=== PATIENT | female | born 1995 | race Caucasian/White ===

== ENCOUNTER 2020-03-04 14:31 | Emergency (ER) | payer OTHER, SELFPAY ==
--- NOTE | ~2020-03-04 | XR_ITS ---
EXAMINATION: XR chest 1V portable DATE: 03/04/2020 15:58 INDICATION: Chest pain, cough, fever and 3 days of sore throat TECHNIQUE: frontal view of the chest was obtained. COMPARISON: None FINDINGS: The lungs are clear with no focal airspace opacities, pulmonary edema, pleural effusion or pneumothor ax. The cardiomediastinal silhouette is normal. Visualized bones and soft tissues are unremarkable. IMPRESSION: 1. No acute cardiopulmonary disease. Reviewed, dictated and finalized at location A.
[2020-03-04 14:44] VITALS: BP 134/78; PULSE 78; RESP 18; TEMP 37.1; O2SAT 100
[2020-03-04 15:30] VITALS: RESP 16
--- NOTE | 2020-03-04 16:01 | ED.GENADULT ---
HPI - General Adult General Chief complaint: Unspecified <Cole Quezada PA-C - Last Filed: 03/04/20 16:17> Stated complaint: COVID Symptoms Sent by PCP <Cole Quezada PA-C - Last Filed: 03/04/20 16:17> Time Seen by Provider: 03/04/20 15:22 <Cole Quezada PA-C - Last Filed: 03/04/20 16:17> Source: patient <Cole Quezada PA-C - Last Filed: 03/04/20 16:17> Mode of arrival: ambulatory <Cole Quezada PA-C - Last Filed: 03/04/20 16:17> Limitations: no limitations <Cole Quezada PA-C - Last Filed: 03/04/20 16:17> History of Present Illness HPI narrative: Patient is a 24-year-old female who presents to emergency department for evaluation of upper respiratory symptoms for the last several days noting congestion headache cough sore throat. Patient was referred to emergency department for evaluation and COVID testing patient denies vomiting diarrhea has not taken anything for her symptoms and on arrival is resting comfortably in the room in no distress. Patient works for [employer] denies any sick known contacts <Cole Quezada PA-C - Last Filed: 03/04/20 16:17> Related Data Allergies/adverse reactions: Allergies Allergy/AdvReac Type Severity Reaction Status Date / Time No Known Allergies Allergy Unknown Unverified 03/04/20 15:32 <Cole Quezada PA-C - Last Filed: 03/04/20 16:17> Review of Systems Review of Systems: All systems reviewed & are unremarkable except as noted in HPI and below <Cole Quezada PA-C - Last Filed: 03/04/20 16:17> [facility] Past Medical History Medical History: Medical History (Updated 03/04/20 @ 16:16 by Cole Quezada PA-C) Obese <Cole Quezada PA-C - Last Filed: 03/04/20 16:17> Surgical History Surgical History: Surgical History History of cholecystectomy <Cole Quezada PA-C - Last Filed: 03/04/20 16:17> Social History Social History: Social History (Updated 08/07/19 @ 22:42 by Cole Quezada PA-C) Smoking status: Never smoker Gender identity (if verbalized by the patient): Female <Cole Quezada PA-C - Last Filed: 03/04/20 16:17> Exam Narrative: Exam Narrative: GENERAL: Well-appearing, obese, and in no acute distress. HEAD: Normocephalic, atraumatic. EYES: PERRLA and EOMI. ENT: Nares clear, no rhinorrhea or epistaxis. Mucous membranes moist. Oropharynx without tonsillar hypertrophy exudate or other lesions. CHEST: Clear to auscultation. No respiratory distress. No wheezes rales or rhonchi HEART: Regular rate and rhythm. No murmur heard. EXTREMITIES: Normal range of motion. No edema. SKIN: Warm, dry, no rash. NEURO: No focal deficits. Alert and oriented x3. Cranial nerves II through XII grossly intact PSYCH: Normal mood and affect. <Cole Quezada PA-C - Last Filed: 03/04/20 16:17> Course Course Emergency Course: Patient in the room without any high risk changes in the chest radiograph normal vital signs will be discharged home pending COVID testing <Cole Quezada PA-C - Last Filed: 03/04/20 16:17> Vital Signs Vital signs: Vital Signs Temperature 98.7 F 03/04/20 14:44 Pulse Rate 78 03/04/20 14:44 Respiratory Rate 18 03/04/20 14:44 Blood Pressure 134/78 03/04/20 14:44 Pulse Oximetry 100 03/04/20 14:44 Temperature 98.7 F 03/04/20 14:44 Pulse Rate 59 L 03/04/20 17:21 Respiratory Rate 12 03/04/20 17:21 Blood Pressure 111/69 03/04/20 17:21 Pulse Oximetry 98 03/04/20 17:21 <Cole Quezada PA-C - Last Filed: 03/04/20 16:17> Vital Signs Temperature 98.7 F 03/04/20 14:44 Pulse Rate 78 03/04/20 14:44 Respiratory Rate 18 03/04/20 14:44 Blood Pressure 134/78 03/04/20 14:44 Pulse Oximetry 100 03/04/20 14:44 Temperature 98.7 F 03/04/20 14:44 Pulse Rate 59 L 03/04/20 17:21 Respiratory Rate 12 03/04/20 17:21 Bloo
[2020-03-04 17:21] VITALS: BP 111/69; PULSE 59; RESP 12; O2SAT 98
[2020-03-05 14:05] LABS: SARS-CoV-2 RNA PCR Negative
== END 2020-03-04 17:00 | disposition home or self-care (01) ==
PROVIDERS: Emergency Medicine Emergency Medical Services; Emergency Provider General Practice; PCP Emergency Medicine
DX: J06.9 Acute upper respiratory infection, unspecified (principal); Z20.828 Contact with and (suspected) exposure to other viral communicable diseases
CPT/HCPCS: 71045; 87635; 99283; C9803; U0003

== ENCOUNTER 2020-06-03 08:24 | Outpatient (NON) | payer OTHER, SELFPAY ==
[2020-06-04 03:00] LABS: SARS-CoV-2 RNA PCR Negative
== END 2020-06-03 08:25 ==
PROVIDERS: PCP Emergency Medicine; Visit Provider Emergency Medicine
DX: Z20.828 Contact with and (suspected) exposure to other viral communicable diseases (principal); B34.9 Viral infection, unspecified
CPT/HCPCS: 87635; C9803; U0003

== ENCOUNTER 2023-04-11 10:29 | Outpatient (RCR) | payer OTHER, SELFPAY ==
--- NOTE | 2023-04-11 11:48 | OPREHPOC ---
Outpatient Therapy Plan of Care This is a Multidisciplinary Plan of Care that may contain components documented by all disciplines (PT, OT, and ST.) PT Problem 1 PT Problem #1 Knowledge Deficit PT Goal 1 Goal 1* pt indep with HEP PT Problem 2 PT Problem #2 Pain PT Goal 1 Goal 1* pt report pain at worst rating of 8/10 2* pt report standing/walking tolerance of 1 & 1/2 hours PT Problem 3 PT Problem #3 Impaired Strength PT Goal 1 Goal 1* pt able to perform sitting ball exercises x 15 reps with good stability of trunk and hips PT Problem 4 PT Problem #4 Impaired Flexibility PT Goal 1 Goal pt not report pain increase with: 1* supine R hip ER 2* side lying R hip abduction
--- NOTE | 2023-04-11 11:48 | PTOPEVAL1 ---
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, office, moving furniture-- now not moving furniture; limited activity now--no heavy lifting, problems getting out of bed, Reported Pain Level Pain Score Self Report Additional Pain Score Comments pain in past week 2-10: constant pressure, spreading hips apart and pain; hips lock up when really bad, R hip pain > L, felt like R hip has popped out of place; increase pain: getting out of bed in AM, stand/ walk about 1 hour decrease pain: hot bath soak, sit, lean on counter top at work have not really tried any movements of legs or exercises Assessment PT Clinical Summary Machelle has the diagnosis of back and hip pain with . She is at 20 weeks now and this is her 3rd child. She reports chronic back pain, onset after epidural injection with her 4 yr old child. Her pain is increased with walking, standing, supine/sit transfer. With the evaluation, she has increased lumbar lordosis in standing, with pain over sacrum; R hip is more painful than L; most increase in pain with supine R hip ER; Skilled PT services are indicated for decrease in pain, increase strength of trunk and hips, with education for home exercises and posture correction, monitor changes as progresses. Plan of Care Interventions Hot Pack/Cold Pack,Manual Therapy,Neuro Re- education,Patient Education,Therapeutic Activities,Therapeutic Exercise,Other Other Interventions taping PT Services Indicated Yes Treatment Frequency and 1-2x/wk for
--- NOTE | 2023-05-02 09:48 | PCPTNOTE ---
05/02/23: Patient did not show for her appointments on 04/18, 04/21, or 04/28. Left message for patient and no call was returned.
--- NOTE | 2023-05-02 14:49 | PTOPDC ---
Assessment and note entered by Joanna Campbell, PT Evaluation Information Assessment Status Discharge - Pt Not Present Diagnosis low back and bilateral hip pain with Onset Feb 28, 2023 Assessment PT Clinical Summary PHYSICAL THERAPY DISCHARGE Pt attended the PT evaluation on 04-11-23, then did not show for the next 3 scheduled appointments. Therefore, she will be discharged from PT at this time. Plan of Care PT Services Indicated No
== END 2023-05-05 16:11 | disposition home or self-care (01) ==
LOC: ANHPT 10:29
PROVIDERS: PCP Emergency Medicine; Visit Provider Obstetrics & Gynecology
DX: O99.891 Other specified diseases and conditions complicating pregnancy (principal); M54.50 Low back pain, unspecified; M25.551 Pain in right hip; M25.552 Pain in left hip; Z3A.20 20 weeks gestation of pregnancy
CPT/HCPCS: 97110; 97161; 99199

== ENCOUNTER 2023-05-20 18:33 | Emergency (ER) | payer OTHER, SELFPAY ==
[2023-05-20] VITALS (16 sets, daily range): BP systolic 118–135; BP diastolic 68–82; PULSE 74–86; RESP 10–22; TEMP 36.2; O2SAT 84–100
--- NOTE | ~2023-05-20 | XR_ITS ---
EXAMINATION: XR chest 2V Exam Date/Time: 05/20/2023 19:15 CDT HISTORY: cough, COVID x6 weeks ago Comparison: 03/04/2020. RESULT: Lines, tubes, and devices: None. Lungs and pleura: Clear. Cardiomediastinal silhouette: Stable. Other: No acute osseous or upper abdominal finding. IMPRESSION: No acute cardiopulmonary process. Reviewed, dictated and finalized at location K.
--- NOTE | 2023-05-20 19:17 | ED.GENADULT ---
HPI - General Adult General Chief complaint: Upper Respiratory Infection Stated complaint: cough Time Seen by Provider: 05/20/23 19:07 History of Present Illness HPI narrative: Patient a 28-year-old female who presents the emergency department with chief complaint of cough. The patient reports that she was diagnosed with COVID-19 on 29 April and reports that she has been treated with Zithromax and has continued to have a cough and wheezing at night. The patient does report that she has history of asthma. Patient denies fever patient does report that she has had a cough has been productive of green sputum Related Data Home Medications Medication Instructions Recorded Confirmed sertraline 50 mg tablet 50 mg PO DAILY 09/09/21 09/13/21 Allergies Allergy/AdvReac Type Severity Reaction Status Date / Time kulwinder Allergy Intermediate NAUSEA Verified 05/20/23 18:34 Review of Systems Review of Systems: A 10 system review of systems was completed on the patient and is negative except for what is stated in the HPI. Nursing and ancillary documentation was reviewed. PMFSH Past Medical History Medical History Asthma Obese Surgical History Surgical History History of cholecystectomy 2018 Previous section 2017, 2019 Family History Family History Father Medical history unknown Mother Medical history unknown Grandparent Heart failure Kidney failure Grandparent Congestive heart failure Kidney failure Social History Social History Smoking status: Never smoker Alcohol intake: current Alcohol use details: very rarely Substance use type: does not use Living arrangements: with family Occupation/Education: occupation Additional occupation/education comments: [employer] Gender identity (if verbalized by the patient): Female Exam Narrative: GENERAL: Well-appearing, well-nourished, and in no acute distress. HEAD: Normocephalic, atraumatic. EYES: PERRLA and EOMI. ENT: Nares clear, no rhinorrhea or epistaxis. Mucous membranes moist. NECK: Supple. CHEST: Scattered wheezing with coughing to auscultation. No respiratory distress. HEART: Regular rate and rhythm. No murmur heard. Normal peripheral pulses. ABDOMEN: Soft, nontender, nondistended, normal active bowel sounds. EXTREMITIES: Normal range of motion. No edema. SKIN: Warm, dry, no rash. NEURO: No focal deficits. Alert and oriented x3. PSYCH: Normal mood and affect. Course Vital Signs Vital signs: Vital Signs Temperature 36.2 C L 05/20/23 18:34 Pulse Rate 79 05/20/23 18:34 Respiratory Rate 18 05/20/23 18:34 Blood Pressure 133/82 05/20/23 18:34 Pulse Oximetry 100 05/20/23 18:34 Temperature 36.2 C L 05/20/23 18:34 Pulse Rate 86 05/20/23 19:44 Respiratory Rate 16 05/20/23 19:44 Blood Pressure 123/68 05/20/23 19:07 Pulse Oximetry 99 05/20/23 19:07 Oxygen Delivery Room Air 05/20/23 19:03 Medical Decision Making MDM Narrative Medical decision making narrative: Differential diagnosis includes pneumonia, asthma exacerbation, bronchitis The patient will be started on a prednisone pulse Vital Signs Vital Signs: Vital Signs Temperature 36.2 C L 05/20/23 18:34 Pulse Rate 79 05/20/23 18:34 Respiratory Rate 18 05/20/23 18:34 Blood Pressure 133/82 05/20/23 18:34 Pulse Oximetry 100 05/20/23 18:34 Temperature 36.2 C L 05/20/23 18:34 Pulse Rate 86 05/20/23 19:44 Respiratory Rate 16 05/20/23 19:44 Blood Pressure 123/68 05/20/23 19:07 Pulse Oximetry 99 05/20/23 19:07 Oxygen Delivery Room Air 05/20/23 19:03 Discharge Plan Discharge Clinical Impression: Acute asthmatic bronchitis
[2023-05-20] MEDS: predniSONE 20 MG TABLET 60 MG PO (19:24)
[2023-05-20] MEDS: IPRATROPIUM BR 0.02% INH SOLN 0.5 MG/2.5 ML VIAL INHALATION (19:34)
[2023-05-20] MEDS: ALBUTEROL SULFATE NEB 2.5 MG/3 ML INH INHALATION (19:34)
== END 2023-05-20 21:02 | disposition home or self-care (01) ==
PROVIDERS: Emergency Provider Emergency Medicine; PCP Internal Medicine
DX: J20.9 Acute bronchitis, unspecified (principal); J45.909 Unspecified asthma, uncomplicated; E66.9 Obesity, unspecified; Z68.43 Body mass index [BMI] 50.0-59.9, adult; Z86.16 Personal history of COVID-19; Z90.49 Acquired absence of other specified parts of digestive tract
CPT/HCPCS: 71046; 94640; 99283; J7512

== ENCOUNTER 2023-06-24 14:47 | Outpatient (CLI) | payer OTHER, SELFPAY ==
[2023-06-24] VITALS (7 sets, daily range): BP systolic 106–113; BP diastolic 53–61; PULSE 67–74; RESP 20; TEMP 36.4; BMI 52.7
[2023-06-24] MEDS: DEXTROSE 5%/LACTATED RINGERS 1,000 ML 500 ML IV CONT (15:52)
[2023-06-24] MEDS: ONDANSETRON INJ 4 MG/2 ML VIAL IV PUSH (15:54)
[2023-06-24 16:12] LABS: Basophils Absolute Auto 0.1 K/mm3 (0.0-0.1); Basophils Percent Auto 0.4 % (0.2-1.2); Eosinophils Absolute Auto 0.1 K/mm3 (0-0.3); Eosinophils Percent Auto 0.8 % (0-4.4); Hematocrit 35.3 % (37.0-47.0); Hemoglobin 11.6 g/dL (12.0-15.0); Immature Granulocyte Absolute 0.07 K/mm3 (0.00-0.031); Immature Granulocyte Percent A 0.5 % (0-0.5); Lymphocytes Absolute Auto 2.99 K/mm3 (0.9-3.2); Lymphocytes Percent Auto 21.7 % (18.3-44.2); Mean Corpuscular HGB Conc 32.9 g/dl (32-36); Mean Corpuscular Hemoglobin 30.7 pg (26-34); Mean Corpuscular Volume 93.4 fl (80-100); Mean Platelet Volume 11.1 fl (7.4-10.4); Monocytes Absolute Auto 0.9 K/mm3 (0.1-0.6); Monocytes Percent Auto 6.5 % (2.6-8.5); Neutrophils Absolute Auto 9.7 K/mm3 (1.3-6.7); Neutrophils Percent Auto 70.1 % (45.5-73.1); Platelet Count Result 244 k/mm3 (150-375); Red Blood Count 3.78 M/mm3 (4.2-5.4); White Blood Count 13.8 K/mm3 (4.5-10.0)
[2023-06-24 16:18] LABS: Creatinine Urine 141.3 mg/dL
[2023-06-24 16:25] LABS: Alanine Aminotransferase 17 U/L (6-35); Albumin Level 3.3 g/dL (3.5-5.1); Alkaline Phosphatase 116 U/L (38-126); Anion Gap 7 mmol/L (8-16); Aspartate Amino Transferase 17 U/L (14-36); Bilirubin,Total 0.4 mg/dL (0.2-1.3); Blood Urea Nitrogen 4 mg/dL (7-17); Calcium 8.7 mg/dL (8.4-10.2); Carbon Dioxide 21 mmol/L (22-30); Chloride 107 mmol/L (98-107); Estimated Glomerular Filt Rate > 60; Glucose 77 mg/dL (65-110); Potassium 4.1 mmol/L (3.4-5.0); Sodium 135 mmol/L (137-145); Uric Acid 3.2 mg/dL (2.5-7.5)
[2023-06-24] MEDS: ACETAMINOPHEN 500 MG TABLET 1000 MG PO (16:29)
[2023-06-24 17:07] LABS: Appearance Urine Cloudy (Clear); Bacteria Urine Rare /hpf; Bilirubin Urine Negative (Negative); Blood Urine Negative (Negative); Calcium Oxalate Crystals Urine Present /hpf; Color Urine Yellow (Yellow); Glucose Urine UA Negative (Negative); Ketones Urine Negative (Negative); Leukocyte Esterase Ur Negative LEU/UL (Negative); Nitrate Urine Negative (Negative); Non Pathogenic Casts 0-2; Protein Urine Negative (Negative); Specific Grav Ur 1.025 (1.001-1.035); Squamous Epithelial Cell Urine Occasional /hpf (Few); WBC Urine 0-5 /hpf; pH Urine 6.5 (5.0-9.0)
[2023-06-24 17:08] LABS: Add Urine Microscopic? YES
[2023-06-24 17:11] LABS: Total Protein Urine Random < 5 mg/dL; Ur Ttl Prot Creatinine Ratio < 0.04 mg/mg (0-0.20)
--- NOTE | 2023-06-24 17:30 | PC.NURSE ---
Dr. Marte informed of BP's, lab results, nausea resolved after Zofran, pt able to keep ice chips, jello, and some water down, headache resolved after Tylenol. Pt feeling much better after IV fluids and ready to go home. Discharge orders received.
== END 2023-06-24 17:40 | disposition home or self-care (01) ==
LOC: ANHOBOP 14:54 → ANHOBPP 15:13
PROVIDERS: Obstetrics & Gynecology; PCP Internal Medicine; Visit Provider Obstetrics & Gynecology
DX: R51.9 Headache, unspecified (principal); R11.0 Nausea
CPT/HCPCS: 36415; 59025; 80053; 81001; 82570; 84156; 84550; 85025; 96361; 96374; 99199; A9270; J2405; J7121

== ENCOUNTER 2023-07-11 11:31 | Outpatient (CLI) | payer OTHER, SELFPAY ==
--- NOTE | ~2023-07-11 | US_ITS ---
EXAMINATION: US venous doppler [facility] DATE: 07/11/2023 12:10 INDICATION: Left lower limb pain and swelling. TECHNIQUE: Grayscale ultrasound images without and with compression and Doppler ultrasound images of the left lower extremity veins were obtained. COMPARISON: Ultrasound 01/03/2018 FINDINGS: The visualized portions of left common femoral vein, profunda (deep) femoral vein, femoral vein, popl iteal vein, peroneal veins, posterior tibial veins, and greater saphenous vein outflow are patent. IMPRESSION: 1. No deep venous thrombosis. Reviewed, dictated and finalized at location A. N [employer]
== END 2023-07-11 11:32 | disposition home or self-care (01) ==
PROVIDERS: PCP Internal Medicine; Visit Provider Obstetrics & Gynecology
DX: M79.89 Other specified soft tissue disorders (principal)
CPT/HCPCS: 93971

== ENCOUNTER 2023-07-23 19:10 | Observation (INO) | payer OTHER, SELFPAY ==
--- NOTE | 2023-07-23 19:36 | PC.NURSE ---
pt presents to L&D with complaints of spotting, decreased movement, and swelling. pt states at 1845 she had a dime size amount of red blood on her toilet paper after she wiped. states it has not happened since and that she does not have any active bleeding. pt states she hasn't felt baby move since this morning. pt states she started swelling this morning around 5am and has cold feet. pt denies any history of pre eclampsia and states she has had a healthy . pt denies any leaking of fluid. pt states she has been under severe stress the last 3 days. pt states she has been on and off period cramping. pt states she took 1000mg of tylenol at 1600.
--- NOTE | 2023-07-23 19:39 | PC.NURSE ---
baby audibly moving
[2023-07-23 19:44] VITALS: PULSE 74; O2SAT 98
[2023-07-23 19:45] VITALS: BP 110/60; PULSE 74
--- NOTE | 2023-07-23 20:00 | PC.NURSE ---
Calves, ankles and feet assessed bilaterally, +1 pitting edema noted on left ankle, no edema noted anywhere else, per pt chart pt has had edema on left ankle. Dr. Marte notified of pt status, instructed to send pt home
[2023-07-23 20:03] VITALS: BMI 52.0
--- NOTE | 2023-07-23 20:04 | OBADM ---
This patient, Machelle Power, admitted to the OB room [facility] for observation. Patient/family oriented to hospital policies and general routines including ID bracelet, bed and alarms, visiting hours, pain management, procedures, bathroom and other care routines, personal items, smoking policy, room service/diet, and visiting hours. Patient/Family are encouraged to report perceived risks to care and to ask questions if they do not understand what they are told or what they should do.
--- NOTE | 2023-08-04 16:48 | PM.OBTRLD ---
OB - Triage/Final Diagnosis Visit Information Comments/Additional reasons for admission: I have assessed the risk for this patient, Machelle Power, and determined that she would benefit from observation care. Final Diagnosis (1) Edema: Code(s): R60.9 - Edema, unspecified Status: Acute
== END 2023-07-23 20:15 | disposition home or self-care (01) ==
PROVIDERS: Admitting Provider Obstetrics & Gynecology; PCP Internal Medicine; Visit Provider Obstetrics & Gynecology
DX: O12.03 Gestational edema, third trimester (principal); Z3A.34 34 weeks gestation of pregnancy
CPT/HCPCS: G0378; G0379

== ENCOUNTER 2023-08-05 19:20 | Outpatient (RCR) | payer OTHER, SELFPAY | END 2023-11-03 23:59 | disposition home or self-care (01) | LOC: ANHOBOP 19:20 | PROVIDERS: PCP Internal Medicine; Visit Provider Obstetrics & Gynecology | DX: O36.8130 Decreased fetal movements, third trimester, not applicable or unspecified (principal); Z3A.36 36 weeks gestation of pregnancy | CPT/HCPCS: 59025 ==

== ENCOUNTER 2023-08-19 08:55 | Outpatient (CLI) | payer OTHER, SELFPAY ==
[2023-08-19 09:27] LABS: Hematocrit 40.8 % (37.0-47.0); Mean Corpuscular HGB Conc 31.9 g/dl (32-36); Mean Corpuscular Hemoglobin 29.5 pg (26-34); Mean Corpuscular Volume 92.5 fl (80-100); Mean Platelet Volume 11.4 fl (7.4-10.4); Platelet Count Result 256 k/mm3 (150-375); Red Blood Count 4.41 M/mm3 (4.2-5.4); Red Cell Distribution Width 13.2 % (11.5-14.5); White Blood Count 12.8 K/mm3 (4.5-10.0)
[2023-08-21 13:53] LABS: Rapid Plasma Reagin Non-Reactive (NonReactive)
== END 2023-08-19 08:56 | disposition home or self-care (01) ==
LOC: ANHLAB 08:56
PROVIDERS: PCP Internal Medicine; Visit Provider Obstetrics & Gynecology
DX: Z01.818 Encounter for other preprocedural examination (principal)
CPT/HCPCS: 36415; 85027; 86592; 86850; 86900; 86901

== ENCOUNTER 2023-08-21 08:39 | Inpatient (IN) | payer OTHER, SELFPAY ==
--- NOTE | 2023-08-16 16:21 | P.HP_ITS ---
H&P: HPI History of Present Illness Date/Time: 08/16/23 16:21 Chief Complaint: Term with previous section and desirous of permanent sterilization Narrative: 28-year-old multiparous patient at term for repeat section bilateral tubal ligation. She was offered other options of none permanent including but not exclusive of pills, patches, injections, implants, but desires permanent and irreversible sterilization. PMFSH Past Medical History Medical History Asthma Obese Surgical History Surgical History History of cholecystectomy 2018 Previous section 2017, 2019 Family History Family History Father Medical history unknown Mother Medical history unknown Grandparent Heart failure Kidney failure Grandparent Congestive heart failure Kidney failure Social History Social History Smoking status: Never smoker Alcohol intake: current Alcohol use details: very rarely Substance use: never Substance use type: does not use Living arrangements: with family Occupation/Education: occupation Additional occupation/education comments: [employer] Gender identity (if verbalized by the patient): Female Spiritual care concerns: No Meds Home Medications and Allergies Home Medications Medication Instructions Recorded Confirmed Type sertraline 50 mg tablet 50 mg PO DAILY 09/09/21 08/02/23 History vit no.95-ferrous 1 tablet PO DAILY 06/24/23 08/02/23 History fumarate 28 mg-folic acid 800 mcg tablet () Allergies Allergy/AdvReac Type Severity Reaction Status Date / Time kulwinder Allergy Intermediate NAUSEA Verified 08/02/23 13:35 Exam Const: General: cooperative, comfortable and obese Orientation/consciousness: oriented to person, oriented to place and oriented to time Resp: Effort & Inspection: normal respiratory effort Cardio: Rate: regular rate Rhythm: regular rhythm Heart sounds: S1 normal heart sound present and S2 normal heart sound present GI: Inspection: normal to inspection ( Gravid soft uterus) and obesity Assessment and Plan Assessment and plan (1) Term : Code(s): Z34.90 - Encounter for supervision of normal , unspecified, unspecified trimester Status: Acute (2) Sterilization: Code(s): Z30.2 - Encounter for sterilization Status: Acute Plan repeat low-transverse section and bilateral tubal ligation
[2023-08-21] VITALS (62 sets, daily range): BP systolic 78–121; BP diastolic 46–90; PULSE 57–91; RESP 13–20; TEMP 36.1–36.9; O2SAT 100; BMI 56.3
--- NOTE | 2023-08-21 08:03 | WPDHPUPDATE1 ---
History and Physical Update Update Date/Time: 08/21/23 08:03 History and Physical has been reviewed, including an updated exam of the patient. There are NO changes in the patient's condition. Risks, benefits, and alternatives have been discussed and questions answered. Patient agrees to proceed with procedure.
--- NOTE | 2023-08-21 08:59 | LDADM ---
This patient, Machelle Power, was admitted to Labor/Delivery/Recovery 120 on 08/21/23 at 08:39. Plans for labor, pain management and were discussed with patient. Patient/family oriented to hospital policies and general routines including ID bracelet, bed and alarms, visiting hours, pain management, procedures, bathroom and other care routines, personal items, smoking policy, room service/diet and guest tray routines, infant security routines, and visiting hours. Patient/Family are encouraged to report perceived risks to care and to ask questions if they do not understand what they are told or what they should do. See OBIX for further documentation.
--- NOTE | 2023-08-21 09:21 | P.PNAN_ITS ---
Anes - Initial Pre Proc Eval Procedure: Operation Date: 08/21/23 12:00 Proposed Procedures p Repeat Section with Tubal Rings - Christian Deluna MD Date/Time: 08/21/23 09:21 Surgeon: Christian Deluna MD Pre Op Diagnosis: C/S Patient Data Age: 28 Gender: F Height: 1.7 m Weight: 163.18 kg Last Vital Signs Pulse 72 08/21/23 09:16 BP 108/58 L 08/21/23 09:16 Allergies Allergy/AdvReac Type Severity Reaction Status Date / Time kulwinder Allergy Intermediate NAUSEA Verified 08/02/23 13:35 Home Medications Medication Instructions Recorded Confirmed Type sertraline 50 mg tablet 50 mg PO DAILY 09/09/21 08/02/23 History vit no.95-ferrous 1 tablet PO DAILY 06/24/23 08/02/23 History fumarate 28 mg-folic acid 800 mcg tablet () hydrocodone 5 mg-acetaminophen 325 1 tablet PO Q4H PRN pain #30 tabs 08/21/23 Rx mg tablet Patient hx anesthesia problems: other (difficult spinal convert to epi with C/S) Family hx anesthesia problems: none Results Review: All pre-operative results and documents have been reviewed as part of the pre- operative evaluation. [facility] Past Medical History Medical History (Updated 08/21/23 @ 09:22 by Christian Mc MD) Asthma Morbid obesity Surgical History Surgical History History of cholecystectomy 2018 Previous section 2017, 2019 Family History Family History Father Medical history unknown Mother Medical history unknown Grandparent Heart failure Kidney failure Grandparent Congestive heart failure Kidney failure Social History Social History Smoking status: Former smoker Tobacco type: cigarettes Second hand tobacco smoke exposure: Yes Alcohol intake: current Alcohol use details: very rarely Substance use: never Substance use type: does not use Living arrangements: with family Occupation/Education: occupation Additional occupation/education comments: [employer] Gender identity (if verbalized by the patient): Female Spiritual care concerns: No Anes - Eval Final PreProcedure Day of Procedure 08/21/23 09:21 Patient weight: morbidly obese Heart: regular rate and rhythm Lungs: clear to auscultation Airway: Mallampati scale class II Neurological: alert and oriented Last oral intake: >/= 8 hours ASA classification: III Emergent: no Anesthetic plan: proceed Anesthesia type and monitoring: regional spinal and standard monitoring Results Review: All pre-operative results and documents have been reviewed as part of the pre- operative evaluation. Informed Consent: The patient's anesthetic plan and its attendant risks and benefits were discussed with the patient/family/POA. Questions were solicited and answers provided to the satisfaction of the patient/family/POA.
[2023-08-21] MEDS: LACTATED RINGERS 1,000 ML 125 ML IV CONT (09:22)
[2023-08-21] MEDS: ceFAZolin 3 GM/D5W 100 ML 100 ML IVPB (09:44)
--- NOTE | 2023-08-21 10:37 | P.PCNOB_ITS ---
OB - Delivery Note Procedure Delivery date: 08/21/23 Pre-op diagnosis: Previous Delivery Post-op Diagnosis: Same Induction method: None Delivery monitor: External FHT Procedure Performed: Repeat and Tubal Ligation Surgeon: Christian Deluna MD Anesthesia type: Spinal Description of Procedure/Findings: Patient was prepped draped in normal sterile fashion placed in supine position. Under excellent spinal anesthetic the abdomen was entered through the previous P fannenstiel incision progressive layers of fascia. Fascia incised midline cure number impression bilaterally. Underlying muscles sharply dissected. Parietal peritoneal by Dee clamps and by sharp dissection carried superiorly and inferiorly to the dome of the bladder. Bladder blade placed a bladder flap formed and a bladder blade returned. A low-transverse incision made the head delivered the airway position. Nuchal cord checked noted loose x1 we be large. Anterior posterior shoulder delivered spontaneously. Cord clamps 2 and cut and passed off the table given Apgars of 9 [id number]. Cord blood was drawn placenta delivered intact manually. Uterus delivered on the abdomen wrapped in moist towel. After assuring no membranes or debris remained in the uterus, the uterus was closed with continuous running locking 0 Vicryl from lateral edge to lateral edge. This was followed by 2nd imbricating running locking 0 Vicryl from lateral edge to lateral edge Nancy hemostasis was assured. Attention was turned to the tubal ligation. The right fallopian tube was grasped with midportion. An knuckle of tube formed with free tie and 0 chromic tied the. The distal and proximal legs were free tied with 0 chromic in the portion between cut passed off as portion of right fallopian tube. Hemostasis was assured. Attention was turned the left fallopian tube in the midportion was grasped a good knuckle tube was free tied with 0 chromic distally and proximally. Portion cut off and passed off as portion of left fallopian tube. Hemostasis was assured. The a uterine incision was inspected 1 last time noted hemostatic. The uterus returned the abdomen laps removed and accounted for. Debris are clean from the pelvic gutters and the fascia then closed with continuous running 0 Vicryl from lateral edge to lateral edge. Irrigation undertaken subcutaneous layer and the skin closed with 4 Monocryl glue. Blood loss was 445. All sponge, needle, instrument counts were correct. Mom and baby doing fine at the time of dictation there were no immediate complications noted Specimen: Yes Estimated Blood Loss: 445 Drains: No Packing: No Pathology: Yes (tubes) Complications: No immediate complications Condition: Stable Disposition: PACU [place] Baby Date of : 08/21/23 Time of : 10:11 Weeks of gestation at delivery: 39 gender: Male Weight (pounds): 7 Weight (ounces): 1 presentation: vertex position: Right Occiput Anterior Placenta delivery description: Manual Removal Cord Vessel Description: Nuchal Cord, Loose and Reduced score one minute: 9 score five minutes: 9
--- NOTE | 2023-08-21 10:41 | PM.DS ---
DS: Admitting Diagnosis Discharge Date 08/23/2023 Admitting Diagnosis term /previous section / sterilization DS: Discharge Diagnosis Discharge Diagnosis (1) Sterilization: Code(s): Z30.2 - Encounter for sterilization Status: Acute (2) Term : Code(s): Z34.90 - Encounter for supervision of normal , unspecified, unspecified trimester Status: Acute DS: Summary Hospital Course Reason for hospitalization: patient was admitted on 08/21/2023 for repeat section bilateral tubal ligation. Hospital Course: Patient underwent said procedure on 08/21/2023. Her hospital course and workup. She remained afebrile. She was up, eating regular diet, ambulating, voiding without difficulty, urinating, and general without complaints. Time Spent with Patient Time attestation: Total time spent providing and/or coordinating discharge services: Exam Const: General: cooperative, healthy appearing and comfortable Nutritional Appearance: obese Orientation/consciousness: oriented to person, oriented to place and oriented to time HENMT: Head: normal to inspection Resp: Effort & Inspection: normal respiratory effort GI: Inspection: normal to inspection and incision ( wound is clean dry and intact) DS: Data Data Completed and Pending Pending studies at discharge: Pending at discharge 08/21/23 10:31 Surgical [PTH] Routine Discharge Plan Discharge Attending physician on discharge: Christian Ackerman Discharging Clinician: Christian Ackerman Patient Disposition: Home, Self-Care Activity: may shower, no straining, may drive after 2 weeks and pelvic rest Diet: heart healthy Wound Care Instructions: follow printed instructions Patient Instructions: Antibiotic Form Stand Alone Forms: General Discharge Information Follow-up/Referrals: Christian Ackerman MD [Physician] - Discharge Medications: New hydrocodone-acetaminophen 5-325 mg tablet 1 tablet PO Q4H PRN (Reason: pain) Qty: 30 0RF No Action sertraline 50 mg tablet 50 mg PO DAILY PNV [id number] fumarate-FA [] 28 mg iron- 800 mcg Tablet 1 tablet PO DAILY Date of admission: 08/21/23 08:39 Primary Care Provider: Olegario Hollingsworth Admitting Provider: Christian Ackerman Attending physician on admission: Christian Ackerman Condition: Stable
[2023-08-21] MEDS: fentaNYL CITRATE INJ (*CRX) 100 MCG/2 ML VIAL 25 MCG IV PUSH ×2 (10:54→12:57)
[2023-08-21] MEDS: OXYTOCIN 30 UNITS/NS 500 ML 30 UNITS/500 ML BAG 125 UNITS IV CONT (12:57)
--- NOTE | 2023-08-21 14:21 | OBPPTRN ---
1303-Patient transferred to post room #291 via stretcher. Support person present. Oriented to unit, room, information board, rooming in, admission packet and security measures. Patient verbalizes understanding.
--- NOTE | 2023-08-21 15:37 | PC.NURSE ---
[id number] Introductions were made, then consulted with patient to assess needs related to . Discussed with mother her?plans to feed?her infant, the?experience so far and she has initiated pumping related to infant not latching and has 25mls at bedside. Encouraged mother to practice [id number] (infant upright with chest sandwiched between the breast or on the breast with a blanket covering when able, offering the breast when feeding cues are visualized, if infant doesn't latch, then pump every 3 hours with the suggestion of paced bottle feeding. is in the nursery under the warmer due time low temperature of 97.0F, although blood sugar resulted in 74mg/dl. Resources provided for inpatient and outpatient services with name written on the communication board and educational pumping hand out with the instruction that there is to be no pain with pumping. Mother voiced understanding of information, any questions or concerns, and will call if there is a request for assistance. Reported to the Primary RN.
[2023-08-21] MEDS: DOCUSATE SODIUM 100 MG CAPSULE PO (17:28)
[2023-08-21] MEDS: DEXTROSE 5%/0.45% SOD CHL 1,000 ML 125 ML IV CONT (17:29)
[2023-08-21] MEDS: ACETAMINOPHEN 325 MG TABLET 650 MG PO (23:30)
[2023-08-21] MEDS: IBUPROFEN 600 MG TABLET PO (23:30)
--- NOTE | 2023-08-21 23:40 | OBPPTRN ---
Patient transferred to post room #280 via wheelchair. Support person present. Oriented to unit, room, information board, rooming in, admission packet and security measures. Patient verbalizes understanding.
[2023-08-22 03:20] VITALS: BP 100/61; PULSE 67; RESP 16; TEMP 36.6; O2SAT 100
[2023-08-22 03:53] LABS: Basophils Percent Auto 0.3 % (0.2-1.2); Eosinophils Absolute Auto 0.1 K/mm3 (0-0.3); Eosinophils Percent Auto 0.7 % (0-4.4); Hematocrit 31.4 % (37.0-47.0); Hemoglobin 10.2 g/dL (12.0-15.0); Immature Granulocyte Absolute 0.06 K/mm3 (0.00-0.031); Immature Granulocyte Percent A 0.5 % (0-0.5); Lymphocytes Absolute Auto 1.99 K/mm3 (0.9-3.2); Lymphocytes Percent Auto 15.4 % (18.3-44.2); Mean Corpuscular HGB Conc 32.5 g/dl (32-36); Mean Corpuscular Volume 92.4 fl (80-100); Mean Platelet Volume 11.4 fl (7.4-10.4); Monocytes Absolute Auto 0.9 K/mm3 (0.1-0.6); Monocytes Percent Auto 6.7 % (2.6-8.5); Neutrophils Absolute Auto 9.9 K/mm3 (1.3-6.7); Neutrophils Percent Auto 76.4 % (45.5-73.1); Platelet Count Result 213 k/mm3 (150-375); Red Cell Distribution Width 13.5 % (11.5-14.5); White Blood Count 12.9 K/mm3 (4.5-10.0)
--- NOTE | 2023-08-22 05:41 | PM.OBPNVD ---
OB - PN: Subj Subjective Date/time seen: 08/22/23 05:41 Patient comments: no complaints and pain well controlled baby status: doing well and nursing well OB - PN: Obj Data Labs 08/22/23 03:23 Labs: Laboratory Results - last 24 hr 08/22/23 03:23 WBC 12.9 H RBC 3.40 L Hgb 10.2 L Hct 31.4 L MCV 92.4 MCH 30.0 MCHC 32.5 RDW 13.5 Plt Count 213 MPV 11.4 H Immature Gran % (Auto) 0.5 Neut % (Auto) 76.4 H Lymph % (Auto) 15.4 L [place] % (Auto) 6.7 Eos % (Auto) 0.7 Baso % (Auto) 0.3 Lymph # (Auto) 1.99 [place] # (Auto) 0.9 H Eos # (Auto) 0.1 Baso # (Auto) 0.0 Abs Immat Gran (auto) 0.06 H Absolute Neuts (auto) 9.9 H Absolute Nucleated RBC 0.0 Nucleated RBC % 0.0 OB - PN A/P Plan day: 1 Plan: routine care Time Spent With Patient Time: Total time spent is greater than 50% in coordination of care (as documented) at patient's floor/unit and/or counseling patient: Time with patient: less than 15 minutes Exam Const: General: cooperative, healthy appearing and comfortable Orientation/consciousness: oriented to person, oriented to place and oriented to time Resp: Effort & Inspection: normal respiratory effort Cardio: Rate: regular rate Rhythm: regular rhythm Heart sounds: S1 normal heart sound present and S2 normal heart sound present GI: Inspection: normal to inspection ( fundus firm below the umbilicus) and incision ( wound is clean dry and intact)
[2023-08-22 07:15] VITALS: BP 102/78; PULSE 77; RESP 18; TEMP 37.2; O2SAT 99
[2023-08-22] MEDS: MULTIVIT/MIN/PREN/FOL AC/IRON TABLET 1 TAB PO (08:00)
[2023-08-22] MEDS: DOCUSATE SODIUM 100 MG CAPSULE PO ×2 (08:30→17:30)
[2023-08-22] MEDS: HYDROcodone/acetaminophen (*CRX) 5-325 MG TABLET 1 TAB PO ×2 (08:30→14:40)
[2023-08-22] MEDS: SIMETHICONE 80 MG TAB.CHEW PO ×2 (08:30→14:39)
[2023-08-22] MEDS: LIDOCAINE 5% PATCH 1 PATCH TRANSDERM (08:30)
[2023-08-22] MEDS: IBUPROFEN 600 MG TABLET PO ×3 (08:30→23:00)
--- NOTE | 2023-08-22 08:36 | WPDANLDPN2 ---
Anes-Prog Note L&D Date/Time: 08/22/23 08:36 Comfortable throughout: section Neuraxial method: spinal Epidural/Spinal procedure site: clean & non-tender Neuro status: Neuro function grossly intact. Cardiovascular status: normal Respiratory status: normal Airway patency: baseline Mental status: baseline Post-Op hydration status: normal Vital Signs: Last Vital Signs Temp 36.6 C 08/22/23 03:20 Pulse 67 08/22/23 03:20 Resp 16 08/22/23 03:20 BP 100/61 08/22/23 03:20 Pulse Ox 100 08/22/23 03:20 O2 Del Method Room Air 08/22/23 03:20 Pain score (VAS): 3/10 I/O: Intake & Output 08/21/23 08/22/23 08/22/23 23:59 07:59 15:59 Intake Total 1340 Output Total 1460 300 Balance -120 -300 Post-procedural complaints: none Patient feedback: Patient satisfied with anesthetic care.
--- NOTE | 2023-08-22 08:37 | WPDANLDNPN2 ---
Anes-Prog Note L&D-Neuraxial Date/Time: 08/22/23 08:37 Neuraxial medications: intrathecal PF morphine Opiod-related complaints: pruritis mild, no treatment Patient feedback: Patient satisfied with post-operative pain management.
[2023-08-22] MEDS: TETANUS,DIPHTHERIA,AC PERTUSSIS ADULT (0.5 ML) BOOSTRIX IM (10:28)
--- NOTE | 2023-08-22 14:27 | PC.NURSE ---
[id number] Purposefully rounded to assess needs. Mother states she is , however; is not demonstrating sucking or good rocking motion. On closer assessment is resting with nipple between the lips. Mother states infant is probably not hungry because was bottle fed 6mls of EBM with a bottle just a few minutes ago. Encouraged upright [id number] and offering breast when feeding cues are visualized. RN LC offered assistance with latching at the next feeding and Mother voiced understanding of information. [id number] Mother verbalizes she is able to independently latch infant and breastfed for 5 minutes. She denies any nipple discomfort and states was swallowing. is currently meeting outcomes for weight, output, jaundice, blood sugar and feeding adequacies. Mother declines any additional assistance or education at this time. Mother is encouraged to call for assistance if her infant doesn?t latch, pain with latching, questions or concerns. Mother voiced understanding of information shared along with the mom/baby guide for an additional resource. Reported to the Primary RN.
[2023-08-22] MEDS: SERTRALINE HCL 50 MG TABLET PO (17:30)
[2023-08-22 17:31] VITALS: BP 113/69; PULSE 65; RESP 14; TEMP 36.7; O2SAT 98
[2023-08-22 19:25] VITALS: BP 131/54; PULSE 73; RESP 18; TEMP 36.8; O2SAT 100
[2023-08-22] MEDS: HYDROcodone/acetaminophen (*CRX) 10-325 MG TABLET 1 TAB PO (23:00)
[2023-08-23] MEDS: HYDROcodone/acetaminophen (*CRX) 5-325 MG TABLET 1 TAB PO (05:00)
[2023-08-23] MEDS: IBUPROFEN 600 MG TABLET PO (05:00)
--- NOTE | 2023-08-23 07:58 | PM.OBPNVD ---
OB - PN: Subj Subjective Date/time seen: 08/23/23 07:58 Patient comments: no complaints and pain well controlled baby status: doing well and nursing well OB - PN: Obj Data Labs 08/22/23 03:23 OB - PN A/P Plan day: 2 Plan: routine care, discharge home and follow up 6 weeks (4) Time Spent With Patient Time: Total time spent is greater than 50% in coordination of care (as documented) at patient's floor/unit and/or counseling patient: Time with patient: less than 15 minutes Exam Const: General: cooperative, healthy appearing and comfortable Orientation/consciousness: oriented to person, oriented to place and oriented to time HENMT: Head: normal to inspection Resp: Effort & Inspection: normal respiratory effort Cardio: Rate: regular rate Rhythm: regular rhythm Heart sounds: S1 normal heart sound present and S2 normal heart sound present GI: Inspection: normal to inspection and incision (cdi)
[2023-08-23 08:15] VITALS: BP 105/53; PULSE 60; RESP 16; TEMP 36.4; O2SAT 100
[2023-08-23] MEDS: MULTIVIT/MIN/PREN/FOL AC/IRON TABLET 1 TAB PO (08:20)
[2023-08-23] MEDS: SERTRALINE HCL 50 MG TABLET PO (08:21)
[2023-08-23] MEDS: DOCUSATE SODIUM 100 MG CAPSULE PO (08:21)
--- NOTE | 2023-08-23 10:27 | PC.NURSE ---
[id number] Mother led the conversation with her experience so far, plan to feed her , and her ability to independently latch without discomfort, however; no effective latch has been visualized. When RN's attempted to assess latch it was an ineffective latch or feeding had just been completed. Mother declined assessments of . Reminded mother to use good handwashing technique to prevent infection. Mother is feeding appropriately for growth of infant with the assistance of supplementing with formula and understands stimulating infant to eat if needed. Infant has had appropriate feedings in the last 24 hours meets the outcomes for weight, output, blood sugar and jaundice at this time. Mother states she is confident to continue to feed her infant at home, when to call for assistance, will reach out to her contact (name unknown) at [place] [facility] resources for additional assistance, denies any additional assistance or education at this time with consent to fax information to the [facility] office. Reinforced understanding of milk production, transition of milk, signs of adequate intake, transition of stool, prevention/relief of engorgement, plugged ducts, mastitis, responsive watching for feeding cues, the different methods of stimulating to breastfeed 1-3 hours after the start of the last feeding, community resources, medication information reviewed per [facility] and when to call a provider using the resource of the feeding sheet along with the mom and baby guide. Mother voiced understanding of the education shared. Reported to the Primary RN.
[2023-08-24 09:25] VITALS: BP 107/47; PULSE 62; RESP 18; TEMP 36.7; O2SAT 97
== END 2023-08-23 09:40 | disposition home or self-care (01) | DRG 539 ==
LOC: ANHLDR 08:47 → ANHOB2 13:16
PROVIDERS: Admitting Provider Obstetrics & Gynecology; PCP Internal Medicine; Visit Provider Obstetrics & Gynecology
PROC: 10D00Z1 Extraction of Products of Conception, Low, Open Approach (ICD-10-PCS; CPT 59514; principal; 2023-08-21 12:00)
DX: O34.219 Maternal care for unspecified type scar from previous cesarean delivery (principal); Z30.2 Encounter for sterilization; O99.214 Obesity complicating childbirth; E66.01 Morbid (severe) obesity due to excess calories; O69.81X0 Labor and delivery complicated by cord around neck, without compression, not applicable or unspecified; Z3A.39 39 weeks gestation of pregnancy; Z37.0 Single live birth; Z23 Encounter for immunization
CPT/HCPCS: 36415; 85025; 88302; 90471; 90686; 90715; A9270; G0008; J0690; J1200; J1885; J2274; J2371; J2405; J2590; J3010; J7120